=== PATIENT | female | born 1940 | race Caucasian/White ===

== ENCOUNTER 2022-04-06 11:15 | Outpatient (RCR) | payer MEDICARE, SELFPAY ==
--- NOTE | 2022-01-21 12:15 | OT.OPODN ---
OT Outpatient Ortho Daily Note OT Outpatient Ortho Daily Note Start: 01/07/22 12:39 Freq: Status: Active Protocol: Document 01/21/22 11:41 LCN (Rec: 01/21/22 12:14 LCN [id number]) E-Signed By Cristiane Rush OTR/L Type of Note Type of Note Type of Note Discharge Note Visit Number 11 Comments (visit #9 12/29/21, OT cert - ) Insurance Information Insurance Information Medicare B Outpatient History/Precautions Current Condition/Medical Diagnosis Treatment Diagnosis S/P R radius/ulna fracture, non operative approach Date of Onset 09/01/21 Precautions Lifting Restrictions Other Precautions RTC 11/12/21 R wrist pain, edema, numbness, ROM,and strength loss affecting daily living skills Medical/Functional History Medical History Reviewed Yes Ortho Subjective Subjective Subjective Pt tolerating increased resistance with R wrist HEP/ green band well, no increase of pain. Alternating between orange and green in her sessions 2x/day. Is able to load dishes overhead in cupboards, sweep and carry loads of laundry again. Gets some tenderness at TFCC area with 3 pt pinch. Still hard to turn doorknobs. (tender at end range of supination/TFCC) . Pt is having increased L shoulder pain (old shoulder injury from many years ago) that is gnawing at night, can not lie on her side, keeping her up at night. Pain is at biceps groove. H been doing some chest toe stapler and scapula exercises, well tolerated, but varied response to overhead and HABD tasks, so she would benefit from referral to PT to address this area more directly. Sariah Rueda is an active nearly 81 y/o female who fell backward and fractured radius, ulna of R wrist while wintering in [place] . Elected not to do surgical repair. Has a 3 casts since then and was changed to splint w Dr. Lowe on 10/13/21, who feels healing is going well. At this time she is affected functionally with stiffness, edema soreness , ROM/strength loss impacting her able to use R hand for most eating, grooming, dressing tasks. She can manipulate small objects with her fingers , applies light pressure of 2-3 # on R hand to open pill bottles, food packaging is going oaky. Not yet able to cut food, able to push self up with R hand form a chair yet. Splint makes it hard to eat with R hand/ silverware. OT OP Daily Ortho Note/Assessment Therapeutic Exercise Therapeutic Exercise Minutes (minutes) 25 Therapeutic Exercise Comments Reviewed HEP with supine shoulder towel ex for B UE w chest press, H ABD to Hadd and short arc sh FL 90-120 x 10 reps each 1-2 times per day, attempted SH ABD stretch , painful at bicipital groove . Issued HEP with visual aide and reviewed referral to PT to address her shoulder pain more directly. Added forearm resistance with supination pronation, better tolerated today, 16 oz weight hammer or water bottle. Guided to stay inside of any painful arc. Pt guided to cont with all strengthening and stretching HEP tasks at least 3 times per week. REviewed progress towards goals and all goals are met. Upper Extremity Function Upper Extremity Function Comments HOME PROGRAM-- 01/21/22-- supination pronation , 16 oz weight hammer or water bottle 01/09/22-- Green therapy band for WR EX, FL, RD, UD. Scap retraction and SH ER isometrics. 12/29/21-- PROM stretches of wrist to longer 30 sec holds x 3 then active end of ROM holds at WR EX and WR FL. SH wall slides/closed chain x 10 glides 12/23/21--UE traction 60 degree door knob traction stretch, posterior pasule/triceps stretch x 3 deep breaths, 3 reps 1-3 times per day. UPgraded to red putty. 12/16/21-- WR EX + EL EX ( medial epcondyle thick) stretch. Self Kinesiotaping at [facility] 12/09/21-- REsisted orange band WR EX, WR FL, RD, UD. 12/02/21-- Yellow putty flat fist, digit adduction gross extension. 11/19/21-- weightbearing onto talbe top alternating 50% pressure on both sides, 5 sec holds x 10 reps. 1-2x/d. 11/10/21-- Putty/yellow 2 pt pinch, digit extension. Self ROM of supination and ulnar deiviation end ROM ( at 70% pressure, hold x 30 sec x 2-3 reps, 3x/day. 11/05/21-- entle putty/yellow squeezing x 3 count holds and alternating 2 pt pinch for all digits. Added 12 oz soup can lifts and slow lowers for WR EX and WR FL. Did not tolerate hammer turns 10/20/21-- stretching WR EX WR FL, UD/ RD, Supination and pulling to 100% tension and reducing to 70% and holding for 3 deep breaths 50 sec x 2-3 reps, 2x/day. Gentle active hand/ tendon glides ( ana hook and table top), able to return from visual aide 3sets of 5 reps, hold 3 sec each. 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 Stove Mechanic and pull back is 35# R and 25# (d/t L shoulder pain). Jarrell pinch is 14# R and L 13#. 3 pt pinch is 9.5 # with 3/10 TFCC tenderness. WR EX is 72. WR EX is 50 AROM and 68 PROM. UD is [address] is 25. 12/30/19 Stove Mechanic to 20#, Jarrell pinch 13# and 3 pt to 9#. TFCC tender. WE AROM to 65 and PROM to 85, improves to 70degrees AROM at end of session. 12/23/21 WR EX AROM is 65, PROM is 75. Stove Mechanic is 18# R and 34# ( no pain). Jarrell pinch is 13# R and 14# L ( no pain). 3 pt pinch is 2/10 TFCC tender) R and 10# L. 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 ( no pain) Jarrell pinch is 113 R ( 13# w Ktape, decreased pn) . 3 pt is 7# ( less pain with tape in place). 12/09/21-- Stove Mechanic R 15# TFCC /201 tender, L 30#. Jarrell pinch is 12#R and 13# L. 3 pt is 7# R ( TFCC and up ECU , 3/10), 10#L. 12/02/21- Stove Mechanic 14# with or without wrist widget, 2-3/10 tenderness TFCC.. Same with weightbearing. AROM /PROM WR EX 60/75 WR FL 70/ 75 RD 25 /30 UD 35 of 40. 5/18/22-- Stove Mechanic with wrist widget on 13#, no pain. Without, has 12# 2-3/10 TFcC tenderness. 3 pt pinch is 5# w 2/10 pressure at TFCC w wrist widget on Painful w weightbearing 3/ 10 TFCC, even with wrist widget on. 11/10/21-- AROM/ PROM of R wrist . WE 60/70.. WF 68 / 73. RD 38 of 30. UD 24 / 38. Supination 80 / 90. OT Problems Problems Problems Decreased Strength,Decreased Range of Motion,Decreased Fine Motor,Lifting,Gripping, Pinching Other Problems Opening Containers,Fasteners Patient Potential Good Occupational Therapy Treatment Plan - OP Potential Rehabilitation Potential Good Goals Goals In 12 weeks, Sariah will demonstrate-- 1) Decreased pn to <2/10 80% of the time with sustained gripping, carrying groceries and deep cleaning/ cooking tasks. (Goal met ) 2) I HEP for stretching, gradual strengthening and self mgmt strategies.(Goal met ) 3) improved R retoucher strength to 35# and pinch to 10# R with pain < 2/10. (GOAL partially met, good symmetrical retoucher and pinch pattern for L and R sides established. Target Date 01/19/22 Treatment Plan Expected Frequency 1-2x Week Comment Summary Discharge from OT Occupational Therapy Billing Units Billing Units Therapeutic Exercise 2
--- NOTE | 2022-02-09 10:05 | PT.OPEX ---
PT [facility] Outpatient Eval PT [facility] Outpatient Eval Start: 02/05/22 17:32 Freq: Status: Active Protocol: Document 02/09/22 08:03 PADMINI (Rec: 02/09/22 09:03 PADMINI [id number]) E-signed By Kayla Ang DPT Physical Therapy Outpatient Evaluation Insurance Information Recert Due Date 05/04/22 Insurance Name Medicare B Medical Diagnosis left shoulder pain Treating Diagnosis infraspinatus tendonitis; rotator cuff and periscapular weakness Subjective Left shoulder pain. Nagging pain under shoulder blade for a few years. Chiropractic treatment helps. Had right wrist fracture. Had to overuse left shoulder which likely inflamed it. Pain in the whole left upper quadrant, neck, down the arm to the elbow, in the armpit, and under the shoulder blade. No numbness or tingling. Unable to sleep on left side. Pain rated 5/10 typically. Can increase to 8/ 10. PMH: osteoporosis; bilateral TKA; right rotator cuff repair PLOF: had similar pain but much more manageable level Assessment/Impression 81 yo with acute on chronic left upper quadrant pain. 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 Had to use left shoulder much more and pain increased to more severe levels. Signs and symptoms suggest infraspinatus tendonitis is the primary cause of pain with secondary rotator cuff tendon irritation and weakness and periscapular weakness. She will benefit from manual therapy to calm acute pain and exercise based interventions to build strength and tissue load for penitentiary resolution of pain limitations. Primary Functional Limitations reaching up, reaching back, hard to fall asleep, Plan of Care Physical Therapy Goals By 05/04/22 patient will... 1) Demonstrate full ROM in flexion and abduction without pain to reach overhead for household objects. 2) Sleep comfortably without shoulder pain waking 90% of the time. 3) Demonstrate 5/5 strength all directions without pain for return to functional lifting and carrying. 4) Report 75% decrease in daily pain levels for less disruption to functional activities. Treatment Plan/Direct Interventions Joint Mobilization,Manual Therapy,Therapeutic Exercises Frequency/Duration 1 x per week for 8 weeks then prn for 4 weeks Patient Will Be Discharged From Therapy Completion of LTG(s),Skills Plateau,Independent w/HEP, Independently Progressing Certification Information Initial Certification Date 02/09/22 Ending Certification Date 05/04/22 Provider signature indicates agreement with plan of care and medical necessity.
== END 2022-04-06 13:11 | disposition home or self-care (01) ==
PROVIDERS: Visit Provider Orthopaedic Surgery
DX: M25.531 Pain in right wrist (principal); Z51.89 Encounter for other specified aftercare
CPT/HCPCS: 97110; 97140; 97162; X5282

== ENCOUNTER 2023-09-27 13:00 | Outpatient (RCR) | payer MEDICARE, SELFPAY | END 2023-09-29 09:21 | disposition home or self-care (01) | PROVIDERS: PCP Internal Medicine; Visit Provider Internal Medicine | DX: M54.2 Cervicalgia (principal); Z51.89 Encounter for other specified aftercare | CPT/HCPCS: 97110; 97140; 97161 ==

== ENCOUNTER 2024-10-18 10:33 | Emergency (ER) | payer MEDICARE, BC, SELFPAY ==
--- OUTSIDE RECORDS SUMMARY | 2024-10-18 10:35 | XMS_ITS | Clinical Summary ---
Author Organization [facility] Address [address] [place] [address] Care Team Providers Care Health Sanitarian Name Role Phone Naga Cole M.D. Primary Care Catrachito valenzuela Source Comments Patient records contain information from all sites at [facility]. For routine questions regarding patient records, call [phone] during business hours, M-F 8:00 AM - 5:00 PM Central Time. Record requests for emergency care only can be directed to [phone] at any time.[facility] Allergies Active Allergy Reactions Criticality Noted Date Comments Lisinopril Cough 04/25/2018 Medications * This document contains information received from the source organization and may not represent a complete record from that organization. amoxicillin (AMOXIL) 500 mg capsule Take 4 capsules by mouth See Admin Instructions. 30-60 minutes before dental procedures 5 Active calcium carb/vit D3/minerals (CALCIUM-VITAMI N D ORAL) Take 1 tablet by mouth daily. 1 Active DME CPAP DME Order Active DULoxetine (Cymbalta) 40 mg capsule,delayed release(DR/EC) DR capsule Take 1 capsule (40 mg total) by mouth daily. 30 capsule 3 4 Active losartan-hydroC HLOROthiazide (Hyzaar) 100-12.5 mg per tablet TAKE 1 TABLET BY MOUTH DAILY 90 tablet 3 5 Active Active Problems Patient Care Coordination No te Formatting of this note migh t be different from the original. LEOBARDO signed for patients spouse Nam avila for lifetime unless revoked by patient. LEOBARDO completed 04/04/24 for daughter, Kati Madera. This is valid for life unless revoked. Problem Noted Date Diagnosed Date Spondylosis Cervical Without Myelopathy 04/26/20 Pain Myofascial 04/26/2024 Pain Neck Mechanical 08/17/2023 Overview (04/25/2024): She goes to pain clinic for cervical neck pain. Assessment & Plan (04/25/2024 3:38 PM CDT): Duloxetine can be increased. She will speak to the pain clinic provider tomorrow. She will mention a TENS unit Neuropathy Peripheral 12/22/2022 Overview (12/22/2022): Toes feel fat Bottom of feet numb. Assessment & Plan (04/25/2024 3:10 PM CDT): Improved with duloxetine Assessment & Plan (12/22/2022 6:24 PM CDT): Has lumbar degerative disc disease.Will restart on gabapentin 100 mg at hs.She will let me know in 2 weeks how she is tolerating the medication Lumbar Disc Disorder 12/22/2022 Overview (12/22/2022): Pain with muscle spasms Assessment & Plan (12/22/2022 9:37 AM CDT): Xray will be done Sclerosis Aortic Valve 12/02/2021 Overview (12/02/2021): Noted on echocardiogram 11/2021. Patient is asymptomatic. Assessment & Plan (04/25/2024 3:20 PM CDT): She gets more winded going up stairs. Repeat echo Osteoporosis 02/25/2021 Overview (04/20/2024): Reclast infusion January 2022, 2022, and 2023. Assessment & Plan (04/25/2024 3:36 PM CDT): She has completed her series of zoledronic acid. She will continue taking calcium with vit d. Assessment & Plan (12/22/2022 6:18 PM CDT): She is in need of another dose in January. Order will be placed. Body Mass Index 34.0 To 34.9 Adult 02/25/2021 Gastroesophageal Reflux Disease 07/05/2015 Overview (05/19/2022): Gastroesophageal reflux disease without esophagitis Assessment & Plan (04/25/2024 3:10 PM CDT): Well managed on prn protonix Assessment & Plan (05/19/2022 2:47 PM BUSINESS BANKING MANAGER): She is asking for her pantoprazole to be renewed. She takes at the approximate 3 times a week. She has had an EGD in the past. This medication was ordered at the time of the EGD and she finds it helpful in managing her symptoms. Hypertension Essential Primary 12/03/2009 Overview (04/25/2024): Essential hypertension with normal renal function. Managed with losartan-hctz Assessment & Plan (04/25/2024 3:34 PM CDT): Notmotensive on current medications Assessment & Plan (12/22/2022 6:26 PM CDT): Amlodipine 5 mg will be added. She will have Blood Pressure check in 2 weeks with nurse. Assessment & Plan (05/19/2022 2:50 PM BUSINESS BANKING MANAGER): She is normotensive and hemodynamically stable on her current plan of medication. No change. Normal kidney function and electrolytes. She is here today because she had an elevated systolic blood pressure at a recent visit with Sleep provider Obstructive Sleep Apnea Adult Overview (12/02/2021): Compliant with CPAP. Polysomnography completed in 2015. Has not been following with sleep medicine. Assessment & Plan (04/25/2024 3:06 PM CDT): Compliant with CPAP Assessment & Plan (12/22/2022 6:26 PM CDT): Wears her CPAP. Assessment & Plan (05/19/2022 2:48 PM BUSINESS BANKING MANAGER): Continue CPAP Osteoarthritis Restless Leg Syndrome Overview (05/19/2022): History of restless leg Assessment & Plan (04/25/2024 3:11 PM CDT): Improved with duloxetine Assessment & Plan (05/19/2022 2:49 PM BUSINESS BANKING MANAGER): She actually has no symptoms Resolved Problems Problem Noted Date Diagnosed Date Resolved Date Morbid Severe Obesity Due To Excess Calories 4 04/25/2024 History Of Falling 05/19/2022 2 Fracture T11-12 Wedge Compression Sequela 10/17/2021 05/19/2022 Overview (10/17/2021): Compression fracture noted on X-ray from 10/07. Fosamax started today. History Of Falling 10/07/2021 2 Hyperlipidemia 04/25/2024 Encounters Date Type Department Care Team Description 09/26/2024 Orders Only Division of Pain Medicine in [place], [place] [address] [place] [phone] Jane Tom, P.A.-C., M.S. 08/13/2024 Refill Department of Community Internal Medicine in [address] [phone] Sara Jacobs MPAS, P.A.-C. Med Refill from Last 3 Months Immunizations Immunization Administration Dates Next Due H1N1 Inj 06/19/2009 Influenza high dose QV(65 ye ars or older) (PF) 04/23/2023,05/01/2022,05/16/2021,2019 Influenza, Seasonal, Injectable 05/29/20 11,05/25/2008,04/19/2007,2005 Influenza, Unspecified 04/23/2017,2015,06/03/2015,2013,05/08/2013,05/13/2012,06/06/2010,0 03/15/2009,05/25/2008,04/19/2007, 006 PCV13 07/02/2015 PPSV23 06/14/2008 RZV (SHINGRIX) 05/23/2022,03/20/2021 SARS-COV-2 (COVID-19) - PFIZ ER (Discontinued)(12 years or older) 08/31/2020,08/10/2020 SARS-COV-2 (COVID-19) - PFIZ ER BIVALENT TS(Discontinued)(12 YEARS OR OLDER) 05/01/2022 SARS-COV-2 (COVID-19) - PFIZ ER Fall Seasonal (12 YEARS OR OLDER) 03/17/2024,04/23/2023 SARS-COV-2 (COVID-19) - PFIZ ER TS(Discontinued)(12 years or older) 10/17/2021 Td (Adult), adsorbed 09/09/2010 Tdap 07/02/2015 influenza trivalent LAIV (Na lina) (2 years through 49 years) 03/15/2009 influenza trivalent high dos e (HD)(PF) 03/17/2024,05/01/2019,04/25/2018,2016,06/03/2015 influenza vaccine quad (FLUZONE/FLUARIX) (6 months and older)(PF) 04/24/2016,06/19/2009 Family History Medical History Relation Name Comments Depression Brother 1 petros romano Diabetes Brother 1 petros romano Esophageal cancer Brother 1 petros romano Heart attack Brother 1 petros romano Prostate cancer Brother 1 petros romano Espogial can ser Sleep apnea Brother 1 petros romano Anxiety disorder Brother 2 roberta romano Coronary artery disease Brother 2 roberta romano Depression Brother 2 roberta romano Diabetes Brother 2 roberta romano Sleep apnea Brother 2 roberta romano Depression Brother 3 fernando Lewy body dementia Brother 4 alejo Parkinson disease Brother 4 alejo Osteoarthritis of knee Daughter Sumanth Coronary artery disease Father Juan romano Depression Father Juan romano JENN disease Father Juan romano Glaucoma Father Juan romano Heart attack Father Juan romano Hypertension Father Juan romano Sleep apnea Father Juan romano Stroke Father Juan romano Ulcerative colitis Father Juan romano No Known Problems Half-Sister Kasandra Jacobsen Cataracts Mother Zahra rose mary Coronary artery disease Mother Zahra rose mary Diabetes Mother Calais rose mary Diabetic retinopathy Mother Calais rose mary Eczema Mother Zahra rose mary Glaucoma Mother Zahra rose mary Hearing loss Mother Calais rose mary Heart attack Mother Calais rose mary Hypertension Mother Calais rose mary Ovarian cancer Mother Zahra rose mary Sleep apnea Sister 1 kathi Arthritis Sister 2 kishan Coronary artery disease Sister 2 kishan Hypertension Sister 2 kishan Anxiety disorder Sister 3 larry Arthritis Sister 3 larry Depression Sister 3 larry Sleep apnea Sister 3 larry Heart disease Son 1 Anatoliy Hypertension Son 1 Anatoliy Anxiety disorder Son 2 Oren Hypertension Son 2 Oren Hypertension Son 3 Andre Relation Name Status Comments Brother 1 petros romano (Age 68) Brother 2 roberta romano Alive Brother 3 fernando (Age 42) MVA Brother 4 alejo Alive Daughter Sumanth Alive Father Juan ormano (Age 71) Half-Sister Kasandra Jacobsen Alive Mother Calais rose mary (Age 84) Sister 1 kathi Alive Sister 2 kishan Alive Sister 3 larry Alive Son 1 Anatoliy Alive Son 2 Oren Alive Son 3 Andre Alive Social History Tobacco Use Types Packs/Day Years Used Date Smoking Tobacco: Former Cigarettes Q uit: 11/06/1976 Smokeless Tobacco: Never Tobacco Cessation:Counseling Given: Not Answered Alcohol Use Standard Drinks/Week Comments Yes 1 (1 standard drink = 0.6 oz pur e alcohol) Maybe 1 a month [facility] Utilities Answer Date Recorded In the past 12 months has th e electric, gas, oil, or water company threatened to shut off services in your home? No 04/04/2024 Humiliation, Afraid, Rape, and Kick questionnair e Answer Date Recorded Within the last year, have y ou been afraid of your partner or ex-partner? No 05/19/2022 Within the last year, have y ou been humiliated or emotionally abused in other ways by your partner or ex-partner? No Within the last year, have y ou been kicked, hit, slapped, or otherwise physically hurt by your partner or ex-partner? No 05/19/2022 Within the last year, have y ou been raped or forced to have any kind of sexual activity by your partner or ex-partner? No 05/19/2022 Social Connection and Isolat ion Panel [NHANES] Answer Date Recorded In a typical week, how many times do you talk on the phone with family, friends, or neighbors? Twice a week 05/19/2022 How often do you get togethe r with friends or relatives? Once a week 05/19/2022 How often do you attend chur ch or episcopalian services? More than 4 times per year 05/19/2022 Do you belong to any clubs o r organizations such as latter day groups, unions, fraternal or athletic groups, or school groups? Yes 05/19/2022 How often do you attend meet ings of the clubs or organizations you belong to? 1 to 4 times per year 05/19/2022 Are you , , di vorced, , never , or living with a partner? 05/19/2022 AUDIT-C Answer Date Recorded Q1: How often do you have a drink containing alc ohol? Monthly or less 05/19/2022 Q2: How many drinks containi ng alcohol do you have on a typical day when you are drinking? 1 or 2 05/19/2022 Q3: How often do you have si x or more drinks on one occasion? Never 05/19/2022 Overall Financial Resource Strain (CARDIA) Answe r Date Recorded How hard is it for you to pa y for the very basics like food, housing, medical care, and heating? Not hard at all 06/16/2023 PHQ-2 Answer Date Recorded PHQ-2 Score 0 04/04/2024 [facility] - Occupational Stress Questionnaire Answer Date Recorded Do you feel stress - tense, restless, nervous, or anxious, or unable to sleep at night because your mind is troubled all the time - these days? Only a little 05/19/2022 Exercise Vital Sign Answer Date Recorde d On average, how many days pe r week do you engage in moderate to strenuous exercise (like a brisk walk)? 3 days 06/16/2023 On average, how many minutes do you engage in exercise at this level? 40 min 06/16/2023 Hunger Vital Sign Answer Date Recorded Within the past 12 months, y ou worried that your food would run out before you got the money to buy more. Never true 04/04/20 24 Within the past 12 months, t he food you bought just didn't last and you didn't have money to get more. Never true 04/04/2024 PRAPARE - Transportation Answer Date Re corded In the past 12 months, has l ack of transportation kept you from medical appointments or from getting medications? No 07/2023 In the past 12 months, has l ack of transportation kept you from meetings, work, or from getting things needed for daily living? No 04/04/2024 Nutrition Answer Date Recorded On average, how many serving s of fruits and vegetables do you eat per day (serving size is equal to 1 cup or approximately the size of a tennis ball)? 3-5 06/16/2023 Dental Answer Date Recorded Dental: Regular Dentist Yes 05/19/20 Employment Answer Date Recorded Employment status Retired 06/16/2023 Housing Stability Answer Date Recorded What is your living situation today? I have a [facility] place to live 04/04/2024 Education Answer Date Recorded What is the highest level of school you have completed or the highest degree you have received? 12th grade 12/20/2018 Comments No Sex and Gender Information Value Date Recorded Sex Assigned at Female 04/24/2018 2:32 PM CDT Legal Sex Female 2:08 AM BUSINESS BANKING MANAGER Gender Identity Female 04/24/2018 2:32 PM CDT Sexual Orientation Straight 04/24/2018 2: 32 PM CDT Last Filed Vital Signs Vital Sign Reading Time Taken Comments Blood Pressure 123/78 04/25/2024 2:42 PM CDT Pulse 68 04/25/2024 2:42 PM CDT manua l Temperature 36 C (96.8 F) 04/25/2024 2:42 PM CDT Respiratory Rate 14 04/04/2024 1:37 PM CDT Oxygen Saturation 96% 11/15/2023 2:45 PM CDT Inhaled Oxygen Concentration - - Weight 88 kg (194 lb 0.1 oz) 04/25/2024 2:42 PM CDT Height 154 cm (5' 0.63) 04/25/2024 2:42 PM CDT Body Mass Index 37.11 04/25/2024 2:42 PM CDT Plan of Treatment Upcoming Encounters Date Type Department Care Team (Latest Contact Info) Description 10/25/2024 1:00 PM CDT Clinical Communication Virtual Review in [place], [place] [address] [place] [phone] 10/27/2024 10:00 AM CDT Office Visit Division of Pain Medicine in [place], [place] [address] [place] [phone] Jane Tom P.A.-C., M.S. [address] [place] [phone] Health Maintenance Due Date Last Done Comments Depression Screening (Annual PHQ-2) 07/05/2024 Fall Risk Screen (Annual) 07/05/2024 COVID-19 Vaccine ( season) 2024 03/17/2024, 04/23/2023, 05/01/2022, Additional history exists Visit: Medicare Annual Wellness 04/05/2025 04/04/2024 Creatinine Level (Kidney Function Test) 04/25/2025 04/25/2024, 01/24/2024, 08/17/2023, Additional history exists Office Visit for Blood Pressure Check / Re-check 04/25/2025 04/25/2024 Potassium Level 04/25/2025 04/25/2024, 08/05, 12/22/2022, Additional history exists Sodium Level 04/25/2025 04/25/2024, 08/05, 12/22/2022, Additional history exists Visit: Chronic Disease, age 18+ 04/25/2025 04/25/2024 DTaP,Tdap,and Td Vaccines (2 - Td or Tdap) 07/02/2025 07/02/2015, 09/09/2010 Pneumococcal vaccine (50+ years) Completed 07/02/2015, 06/14/2008 Colonoscopy Discontinued 04/18/2021, 05/17/2014 Colorectal Cancer Surveillance Discontinued Zoster Vaccines Completed 05/23/2022, 03/20/2021 Influenza Vaccine Completed 03/17/2024, , 05/01/2022, Additional history exists RSV vaccine - (32-36 weeks) or 60+ years Completed 05/02/2024 CT Colonography Discontinued Cologuard Discontinued IPV Vaccines Aged Out No longer eligi ble based on patient's age to complete this topic Medical Devices Implanted Type Area Conductor Road Freight Device Identifier Shelf Expiration Date Model / Serial / Lot Hardware E.G. Pins/Screws/R ods Hardware e.g. 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 Knee Implant Knee Implant Right: Knee Knee Implant Knee Implant Left: Knee Ocular Lens Ocular Lens Bilateral: Eye Procedures Procedure Name Priority Date/Time Associated Diagnosis Comments COMPREHENSIVE METABOLIC PANEL, S/P Routine 04/25/2024 3:46 PM CDT Hypertension Essential Primary from Last 3 Months or Most Recently Relevant to Health Maintenance Results * (ABNORMAL) Comprehensive Metabolic Panel (04/25/2024 3:46 PM CDT) Potassium, P 4.9 3.6 - 5.2 mmol/L 04/25/2024 6:24 PM CDT OWAT Sodium, P 140 135 - 145 mmol/L 04/25/2024 6:24 PM CDT OWAT Chloride, P 103 98 - 107 mmol/L 04/25/2024 6:24 PM CDT OWAT Bicarbonate, P 28 22 - 29 mmol/L 04/25/2024 6:24 PM CDT OWAT Anion Gap, P 9 7 - 15 04/25/2024 6:24 PM CDT OWAT BUN (Blood Urea Nitrogen), P 22(H) 6 - 21 mg/dL 04/25/2024 6:24 PM CDT OWAT Creatinine 0.75 0.59 - 1.04 mg/dL 04/25/2024 6:24 PM CDT OWAT Estimated GFR (eGFR) 79 >=60 mL/min/BS A 04/25/2024 6:24 PM CDT OWAT Comment: Estimated GFR calculated using the 2020 CKD_EPI creatinine equation. Calcium, Total, P 9.5 8.8 - 10.2 mg/dL 04/25/2024 6:24 PM CDT OWAT Glucose, P 105 70 - 140 mg/dL 04/25/2024 6:24 PM CDT OWAT Protein, Total, P 7.2 6.3 - 7.9 g/dL 04/25/2024 6:24 PM CDT OWAT Albumin, P 4.2 3.5 - 5.0 g/dL 04/25/2024 6:24 PM CDT OWAT Aspartate Aminotransferase (AST), P 31 8 - 43 U/L 04/25/2024 6:24 PM CDT OWAT Alkaline Phosphatase, P 82 35 - 104 U/L 04/25/2024 6:24 PM CDT OWAT Alanine Aminotransferase (ALT), P 19 7 - 45 U/L 04/25/2024 6:24 PM CDT OWAT Bilirubin, Total, P 0.3 0.0 - 1.2 mg/dL 04/25/2024 6:24 PM CDT OWAT Blood (Blood, Venous) 04/25/2024 3:46 PM CDT 04/25/2024 5:51 PM CDT Rosmery Pinto APRN, C.N.P. 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 See document viewer. Advance Directives 01/22/2012 12:00 AM Leg acy document. See document viewer. Care Teams Health Sanitarian Relationship Specialty Start Date End Date Naga Cole M.B.B.SBrittney, MAntonia. [address] [place] [phone] PCP - General 09/04/24 [facility] [place], [place] Dentistry 04/04/24 [facility] [place], [place] Ophthalmology 04/04/24 [facility] [place], [place] Chiropractic Medicine 04/04/24 [facility] Durable Medical Equipment 04/04/24
--- OUTSIDE RECORDS SUMMARY | 2024-10-18 10:36 | XMS_ITS | Encounter Summary ---
Author Organization [facility] Address [address] [place] [address] Care Team Providers Care Planishing Press Operator Name Role Phone Naga Cole M.D. Primary Care nicolas Reason for Referral * Outpatient (Routine) - Authorized Specialty Diagnoses / Procedures Referred By Contsaqib t Referred To Contact Pain Medicine Jane Tom P.A.-C., M.S. [address] [place] [phone] Phone: tel: fax: [facility] Referral ID Status Reason Start Date Expiration Date V isits Requested Visits Authorized [id number] Authorized 09/26/2024 03/28/2026 1 1 Encounter Details Date Type Department Care Team (Late st Contact Info) Description 09/26/2024 Orders Only Division of Pain Medicine in [place], [place] [address] [place] [phone] Jane Tom P.A.-C., M.S. [address] [place] [phone] Social History Tobacco Use Types Packs/Day Years Used Date Smoking Tobacco: Former Cigarettes Q uit: 11/06/1976 Smokeless Tobacco: Never Alcohol Use Standard Drinks/Week Comments Yes 1 (1 standard drink = 0.6 oz pur e alcohol) Maybe 1 a month [facility] Utilities Answer Date Recorded In the past [...] 05/19/2022 How often do you attend chur or yazdanism services? More than 4 times per year 05/19/2022 Do you belong to any clubs o r organizations such as advent groups, unions, fraternal or athletic groups, or [...] Answer Date Recorded PHQ-2 Score 0 04/04/2024 [facility] of Occupat ional [facility] - Occupational Stress Questionnaire Answer Date Recorded [...] your living situation today? [facility] place to live 04/04/2024 Education Answer Date Recorded What is the highest level of school you have completed or the highest degree you have received? 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 [address] [place] [phone] Scheduled Referrals Name Type Priority Associated Diagnoses Orde r Schedule Pain Medicine office visit (clinic) Outpatient Referral Routine Expected: 09/26/2024, Expires: 12/27/2025 documented as of this encounter Visit Diagnoses Not on filedocumented in this encounter Additional Health Concerns Assessment Noted Time PHQ-9 Depression Total Score: 2 05/01/20 19 10:21 AM CDT documented as of this encounter Care Teams Planishing Press Operator Relationship Specialty Start Date End Date Naga Cole M.B.B.S., MAntonia. [address] [place] [phone] PCP - General 09/04/24 [facility] [place], [place] Dentistry 04/04/24 [facility] [place], [place] Ophthalmology 04/04/24 [facility] [place], [place] Chiropractic Medicine 04/04/24 [facility] Durable Medical Equipment 04/04/24 documented as of this encounter
--- OUTSIDE RECORDS SUMMARY | 2024-10-18 10:36 | XMS_ITS | Clinical Summary ---
Author Organization [facility] Address [address] [place] [address] Care Team Providers Care Trench Digger Name Role Phone Clinic, [facility] Primary Care Prov ider Allergies Active Allergy Reactions Criticality Noted Date Comments Lisinopril Cough 05/03/2021 Medications pantoprazole (PROTONIX) 20 MG EC tablet Take 40 mg by mouth daily as needed for heartburn Active amoxicillin (AMOXIL) 500 MG capsule Take 2,000 mg by mouth daily as needed (30-60 MIN BEFORE PROCEDURE) Preventative because artificial Knees Active CALCIUM-VITAMIN D PO Active losartan-hydroc hlorothiazide (HYZAAR) 50-12.5 MG tablet Take 1 tablet by mouth daily Active erythromycin (ROMYCIN) 5 MG/GM ophthalmic ointmentIndicat ions:Dermatocha lasis of both upper eyelids Apply topically 3 times daily 7 g 1 Active Social History Tobacco Use Types Packs/Day Years Used Date Smoking Tobacco: Never Smokeless Tobacco: Never Adolescent Education Answer Date Record ed Getting School Help Needed Not on file 03/27 Comments No Sex and Gender Information Value Date Recorded Sex Assigned at Not on file Legal Sex Female 2:49 PM CDT Gender Identity Not on file Sexual Orientation Not on file Last Filed Vital Signs Vital Sign Reading Time Taken Comments Blood Pressure 159/81 05/06/2021 11:30 AM CDT Pulse 66 05/06/2021 11:30 AM CDT Temperature 36.1 C (97 F) 05/06/2021 11:30 AM CDT Respiratory Rate 14 05/06/2021 11:30 AM CDT Oxygen Saturation 94% 05/06/2021 11:30 AM CDT Inhaled Oxygen Concentration - - Weight 88 kg (193 lb 14.4 oz) 05/06/2021 7:03 AM CDT Height 154.9 cm (5' 1) 05/06/2021 7:03 AM CDT Body Mass Index 36.64 05/06/2021 7:03 AM CDT Plan of Treatment Not on file Insurance [employer] AD[employer] Care Teams Trench Digger Relationship Specialty Start Date End Date [facility], [address] [address] PCP - General 05/15/21
[2024-10-18 10:43] VITALS: BP 173/90; PULSE 61; RESP 18; TEMP 36.9; O2SAT 96; BMI 35.9
--- NOTE | 2024-10-18 11:01 | ED_ITS ---
HPI - Extremity Injury (Lower) General Time Seen by Provider: 11:01 Date Seen: 10/18/24 Chief Complaint: Extremity Pain/Injury, Lower Stated Complaint: leg pain Time Seen by Provider: 10/18/24 10:42 Source: patient and RN notes reviewed Mode of arrival: ambulatory Limitations: no limitations History of Present Illness HPI Narrative: This 83-year-old female is coming into the ER with concern of possible blood clot in her leg. She is notice some burning type pain in the back of her leg, inside of her leg. She has no history of blood clots before. Her symptoms s tarted when she was doing water aerobics on Wednesday, she stretched out and stretch the back of her leg, felt a little twinge or a pull. She used a some per on her leg, did a lot of deep tissue massage. She is getting pain from the buttock area down the back of the leg to the knee. No fevers chills, no other trauma. She went to chiropractor yesterday, she feels the pain is worsening. She woke up at 2:00 a.m. with the pain. She is noticing no swelling in the leg, no numbness or tingling. She has had a knee replacement on this side, her knee is not primarily bothering her. Related Data Previous Rx's ?Medication ?Instructions ?Recorded hydrocodone 5 mg-acetaminophen 325 1 tab PO Q6H PRN pain #10 tabs 10/18/24 mg tablet prednisone 20 mg tablet 20 mg PO BID #10 tabs 10/18/24 tizanidine 4 mg tablet 4 mg PO Q8H PRN muscle spasticity 10/18/24 #12 tabs Allergies Allergy/AdvReac Type Severity Reaction Status Date / Time No Known Drug Allergies Allergy Verified 10/18/24 10:42 Review of Systems Narrative: As per HPI. PFSH PFSH Social History Smoking Status: Former smoker Do you use any of these nicotine containing products: None Second hand tobacco smoke exposure: No How often do you have a drink containing alcohol: monthly or less How many standard drinks containing alcohol do you have on a typical day: 1 or 2 How often do you have six or more drinks on one occasion: Never AUDIT-C Alcohol total score: 1 Non-prescribed substance use: denies use service: No Exam Const: Vital Signs, click to edit/add: Vital Signs - 24 hr 10/18/24 10:43 Temperature 98.4 F Pulse Rate [Pulse Oximeter] 61 Respiratory Rate 18 Blood Pressure [Ri ght Upper Arm] 173/90 H Pulse Oximetry 96 Oxygen Delivery Me thod Room Air Patient is alert, interactive, no apparent distress. She is lying on the bed in exam room 2. She is able to speak in complete sentences, symmetric facial function. Lungs are clear, good air entry, no wheezing or crackles. CV regular rate and rhythm, no murmur. She has no groin tenderness. I can rotate her hip, no pain with range of motion of the hip when it is isolated. She can straight leg raise this extremity off the bed, strength is 5/5 and symmetric on resisted strength testing. Well-healed scar over the knee, no joint effusion noted, full flexion extension. There is no palpable cord in the thigh. On palpation of the buttock, does seem to have some sciatic notch tenderness. She has normal light touch sensation. I do not see any concern for motor or sensory loss here. Documenting provider has reviewed patient's vital signs: yes Course Course ED Course: I did review with patient that based on this history I am much less concerned about a blood clot then a.m. about musculoskeletal issues. It could be hip arthritis, more likely seems like it could be potentially coming from her back or a sciatica type issue. We discussed pinched nerves in the lumbar spine. Could be simply muscular with pulling of tendon or muscle with the stretching. We discussed doing venous ultrasound of this extremity, looking at hip x-ray and lumbar spine x-ray. She is in agreement with this plan. Reevaluation(s) Time of Reevaluation #1: 12:57 Reevaluation #1: Have reviewed imaging reports with patient. She does have some hip arthritis but she is starting to get some low back pain now, pain is going down the back of the leg, think that this is a lumbar radiculopathy. She does think so as well. She did take some of her own Tylenol here. She is getting more uncomfortable, do think she might need some initial pain management, will send in a prescription for some hydrocodone as she has tolerated this before. We discussed use of prednisone, will send in muscle relaxant with tizanidine. Dis cussed the need for relative rest, no static positions, sitting sometimes puts the most stress on the back, lying and then getting up to do some slow walks might be most beneficial. She is going to need to follow up, do recommend physical therapy referral through her clinic. Vital Signs Vital signs: Initial Vital Signs Temperature 98.4 F 10/18/24 10:43 Temperature Source Temporal Artery Scan 10/18/24 10:43 Pulse Rate 61 10/18/24 10:43 Pulse Rhythm Regular 10/18/24 10:43 Respiratory Rate 18 10/18/24 10:43 Blood Pressure 173/90 H 10/18/24 10:43 Blood Pressure Mean 117 H 10/18/24 10:43 Blood Pressure Position Supine 10/18/24 10:43 Pulse Oximetry 96 10/18/24 10:43 Oxygen Delivery Method Room Air 10/18/24 10:43 Vital Signs Temperature 98.4 F 10/18/24 10:43 Pulse Rate 61 10/18/24 10:43 Respiratory Rate 18 10/18/24 10:43 Blood Pressure 173/90 H 10/18/24 10:43 Pulse Oximetry 96 10/18/24 10:43 Oxygen Delivery Method Room Air 10/18/24 10:43 Temperature 98.4 F 10/18/24 10:43 Pulse Rate 61 10/18/24 10:43 Respiratory Rate 18 10/18/24 10:43 Blood Pressure 173/90 H 10/18/24 10:43 Pulse Oximetry 96 10/18/24 10:43 Oxygen Delivery Method Room Air 10/18/24 10:43 MDM - Extremity Injury (Lower) Imaging Data Venous US: Attestation: I have reviewed the pertinent imaging results. 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 Site :?[id number] Study:?US-Extremity Right venous-10/18/2024 11:39:43 AM Ordering Physician:Valentín Phan Final Report: INDICATION: Right thigh pain. TECHNIQUE: Ultrasound venous duplex lower right extremity. Compression venous exam was performed using self-scale, color Doppler, and spectral Doppler analysis. COMPARISON: None. FINDINGS: Deep veins: Sonographic imaging demonstrates the right common femoral, deep femoral, superficial femoral, popliteal, posterior tibial and the contralateral left common femoral veins to be fully compressible with normal color Doppler blood flow. Superficial veins: Greater saphenous vein is fully compressible. IMPRESSION: No evidence of deep venous thrombosis. Dictated by Greg Cui MD @ 10/18/2024 11:57:31 AM (Electronic Signature) XR lumbar spine: Attestation: I have reviewed the pertinent imaging results. 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 Site :?[id number] Study:?XRay-Spine Lumbar 2 VIEW-10/18/2024 12:04:14 PM Ordering Physician:Valentín Phan Final Report: INDICATION: Pain right hip/thigh. TECHNIQUE: Lumbar spine 2 view. COMPARISON: None. FINDINGS/IMPRESSION: Mild anterior wedging compression of L1 with height loss of about 30 percent, unknown chronicity. Grade 2 anterolisthesis of L5 over S1, likely secondary to degenerative facet arthropathy. Multilevel moderate degenerative changes with reduction of intervertebral disc height at T12-L1, L1-2, L5-S1 level with scattered facet arthropathy. Dictated by Greg Cui MD @ 10/18/2024 12:29:45 PM (Electronic Signature) XR right hip/pelvis: Attestation: I have reviewed the pertinent imaging results. 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 Site :?[id number] Study:?XRay-Hip Right 2 VIEW-10/18/2024 12:03:48 PM Ordering Physician:Valentín Phan Final Report: Indication: Hip pain. Technique: Pelvis and right hip 3 view. Comparison: None. Findings: Moderate degenerative arthrosis of bilateral hips. No acute fracture or dislocation. No localized soft tissue swelling about right hip. Impression: Moderate degenerative arthrosis of right hip without acute osseous abnormality. Dictated by Greg Cui MD @ 10/18/2024 12:27:18 PM (Electronic Signature) Discharge Plan Discharge Clinical Impression: Acute right lumbar radiculopathy Patient Disposition: Home, Self-Care Condition: Stable Instructions: Lumbar Radiculopathy (ED) Additional Instructions: Start prednisone and take as prescribed, use with food. Can use other prescription medicines as written for. Do recommend follow up in clinic, try to get into your clinic within the next week, they can put in a physical therapy referral which you may greatly benefit from. If there are warning signs as reviewed in the handout, please seek re-evaluation. You certainly can continue with your chiropractor if you would like to. Activity Level: Activity as Tolerated Prescriptions: New prednisone 20 mg tablet 20 mg PO BID Qty: 10 0RF tizanidine 4 mg tablet 4 mg PO Q8H PRN (Reason: muscle spasticity) Qty: 12 0RF hydrocodone-acetaminophen 5-325 mg tablet 1 tab PO Q6H PRN (Reason: pain) Qty: 10 0RF Follow Up/Referrals: aSra Jacobs PA-C [Primary Care Provider] - Stand Alone Forms: MyHealth Info Instructions
--- NOTE | 2024-10-18 11:07 | CRLHL7_ITS ---
For Patients: As a result of the Century Cures Act, medical imaging exams and procedure reports are released immediately into your electronic medical record. You may view this report before your referring provider. If you have questions, please contact your health care provider. INDICATION: Right thigh pain. TECHNIQUE: Ultrasound venous duplex lower right extremity. Compression venous exam was performed using self-scale, color Doppler, and spectral Doppler analysis. COMPARISON: None. FINDINGS: Deep veins: Sonographic imaging demonstrates the right common femoral, deep femoral, superficial femoral, popliteal, posterior tibial and the contralateral left common femoral veins to be fully compressible with normal color Doppler blood flow. Superficial veins: Greater saphenous vein is fully compressible. IMPRESSION: No evidence of deep venous thrombosis. Dictated by Greg Cui MD @ 10/18/2024 11:57:31 AM (Electronically Signed)
--- NOTE | 2024-10-18 11:07 | CRLHL7_ITS ---
For Patients: As a result of the Century Cures Act, medical imaging exams and procedure reports are released immediately into your electronic medical record. You may view this report before your referring provider. If you have questions, please contact your health care provider. INDICATION: Pain right hip/thigh. TECHNIQUE: Lumbar spine 2 view. COMPARISON: None. FINDINGS/IMPRESSION: Mild anterior wedging compression of L1 with height loss of about 30 percent, unknown chronicity. Grade 2 anterolisthesis of L5 over S1, likely secondary to degenerative facet arthropathy. Multilevel moderate degenerative changes with reduction of intervertebral disc height at T12-L1, L1-2, L5-S1 level with scattered facet arthropathy. Dictated by Greg Cui MD @ 10/18/2024 12:29:45 PM (Electronically Signed)
--- NOTE | 2024-10-18 11:07 | CRLHL7_ITS ---
For Patients: As a result of the Century Cures Act, medical imaging exams and procedure reports are released immediately into your electronic medical record. You may view this report before your referring provider. If you have questions, please contact your health care provider. Indication: Hip pain. Technique: Pelvis and right hip 3 view. Comparison: None. Findings: Moderate degenerative arthrosis of bilateral hips. No acute fracture or dislocation. No localized soft tissue swelling about right hip. Impression: Moderate degenerative arthrosis of right hip without acute osseous abnormality. Dictated by Greg Cui MD @ 10/18/2024 12:27:18 PM (Electronically Signed)
--- OUTSIDE RECORDS SUMMARY | 2024-10-18 11:26 | XMS_ITS | Clinical Summary ---
Author Organization [employer] [facility] Address [facility] [place] [address] Care Team Providers Care Pipeline Welder Name Role Phone Eli Tinsley MD Unavailable Rosmery Pinto NP Primary Care Provider Allergies No known active allergies Medications CALCIUM CARBONATE/VITAM IN D3 (CALCIUM + D ORAL) Take 600 mg by mouth once daily. Active losartan-hydroc hlorothiazide, 50-12.5 mg, (HYZAAR) 50-12.5 mg tablet Take 1 tablet by mouth once daily. Active amoxicillin (AMOXIL) 500 mg capsule Take 500 mg by mouth. 4 capsules by mouth 30-60 minutes before procedure Active gabapentin (NEURONTIN) 100 mg capsule Take 100 mg by mouth once every other day. 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 Gender Identity Not on file Sexual Orientation Not on file Obstetrics History Last Filed Vital Signs Vital Sign Reading Time Taken Comments Blood Pressure 165/62 04/18/2021 11:45 AM CDT Pulse 66 04/18/2021 11:45 AM CDT Temperature 36.8 C (98.2 F) 04/18/2021 10:25 AM CDT Respiratory Rate 18 04/18/2021 11:45 AM CDT Oxygen Saturation 98% 04/18/2021 11:45 AM CDT Inhaled Oxygen Concentration - - Weight 86.2 kg (190 lb) 04/18/2021 10:25 AM CDT Height 155 cm (5' 1.02) 04/08/2021 11:42 AM CDT Body Mass Index 35.87 04/08/2021 11:42 AM CDT Plan of Treatment Not on file Insurance [employer] CHOICE PPO MR MEDICARE PART B HB ONLY MR BC [place] Advance Directives * Full Code (Latest Code Status on File) Date Activated Date Inactivated Comments 04/18/2021 10:03 AM 04/18/2021 3:19 PM Question Answer Comments Code Status Discussion: Not Discussed * Full Code Date Activated Date Inactivated Comments 05/17/2014 8:21 AM 05/17/2014 1:29 PM * Full Code Date Activated Date Inactivated Comments 04/16/2014 10:22 AM 04/16/2014 3:02 PM Care Teams Pipeline Welder Relationship Specialty Start Date End Date Rosmery Pinto NP PCP - General Nurse Practitioner 04/14/21 Eli Tinsley MD Family Practice 04/16/14
--- OUTSIDE RECORDS SUMMARY | 2024-10-18 11:26 | XMS_ITS | Encounter Summary ---
Author Organization [facility] Address [address] [place] [id number] Care Team Providers Care Agribusiness Internship Name Role Phone Naga Cole M.D. Primary Care nicolas Reason for Referral * Outpatient (Routine) - Authorized Specialty Diagnoses / Procedures Referred By Contsaqib t Referred To Contact Pain Medicine Jane Tom P.A.-C., M.S. [address] [place] [phone] Phone: tel: fax: [facility] Referral ID Status Reason Start Date Expiration Date V isits Requested Visits Authorized [id number] Authorized 09/26/2024 03/28/2026 1 1 Encounter Details Date Type Department Care Team (Late st Contact Info) Description 09/26/2024 Orders Only Division of Pain Medicine in [place], [place] [address] [place] [phone] Jane Tom P.A.-C., M.S. [address] [place] [phone] Social History Tobacco Use Types Packs/Day Years Used Date Smoking Tobacco: Former Cigarettes Q uit: 11/06/1976 Smokeless Tobacco: Never Alcohol Use Standard Drinks/Week Comments Yes 1 (1 standard drink = 0.6 oz pur e alcohol) Maybe 1 a month [facility] Utilities Answer Date Recorded In the [...] How often do you attend chur or yazidi services? More than 4 times per year 05/19/2022 Do you belong to any clubs o r organizations such as religion groups, unions, fraternal or athletic groups, or [...] Answer Date Recorded PHQ-2 Score 0 04/04/2024 [facility] [place] of Occupat ional [facility] - Occupational Stress Questionnaire Answer [...] your living situation today? I have a [facility] place to live 04/04/2024 Education Answer Date Recorded What is the highest level of school you have completed or the highest degree you have received? 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 [address] [place] [phone] Scheduled Referrals Name Type Priority Associated Diagnoses Orde r Schedule Pain Medicine office visit (clinic) Outpatient Referral Routine Expected: 09/26/2024, Expires: 12/27/2025 documented as of this encounter Visit Diagnoses Not on filedocumented in this encounter Additional Health Concerns Assessment Noted Time PHQ-9 Depression Total Score: 2 05/01/20 19 10:21 AM CDT documented as of this encounter Care Teams Agribusiness Internship Relationship Specialty Start Date End Date Naga Cole M.B.B.S., MAntonai. [address] [place] [phone] PCP - General 09/04/24 [facility] [place], [place] Dentistry 04/04/24 [facility] [place], [place] Ophthalmology 04/04/24 [facility] [place], [place] Chiropractic Medicine 04/04/24 [facility] D[facility] Medical Equipment 04/04/24 documented as of this encounter
--- OUTSIDE RECORDS SUMMARY | 2024-10-18 11:26 | XMS_ITS | Clinical Summary ---
Author Organization [facility] Address [address] [place] [address] Care Team Providers Care Shorer Name Role Phone Clinic, [facility] Primary Care Prov ider Allergies Active Allergy [...] HUMAN EMPLOYER PLAN MED ADV Care Teams Shorer Relationship Specialty Start Date End Date [facility], [address] [phone] PCP - General 05/15/21
--- OUTSIDE RECORDS SUMMARY | 2024-10-18 11:26 | XMS_ITS | Clinical Summary ---
Author Organization [facility] Address [address] [place] [phone] Care Team Providers Care Meters Superintendent Name Role Phone Naga Cole M.D. Primary Care Catrachito valenzulea Source Comments Patient records contain information from all sites at [facility]. For routine questions regarding patient records, call [phone] during business hours, M-F 8:00 AM - 5:00 PM Central Time. Record requests for emergency care only can be directed to [phone] at any time.[facility] Allergies Active Allergy Reactions Criticality Noted Date [...] protonix Assessment & Plan (05/19/2022 2:47 PM THERMOMETER MAKER): She is asking for her pantoprazole to [...] nurse. Assessment & Plan (05/19/2022 2:50 PM THERMOMETER MAKER): She is normotensive and hemodynamically stable on [...] CPAP. Assessment & Plan (05/19/2022 2:48 PM THERMOMETER MAKER): Continue CPAP Osteoarthritis Restless Leg Syndrome Overview (05/19/2022): History of restless leg Assessment & Plan (04/25/2024 3:11 PM CDT): Improved with duloxetine Assessment & Plan (05/19/2022 2:49 PM THERMOMETER MAKER): She actually has no symptoms Resolved Problems [...] Orders Only Division of Pain Medicine in [place], [place] [address] [place] [phone] Jane Tom, P.A.-C., M.S. 08/13/2024 Refill Department of Community Internal Medicine in [address] [phone] Sara Jacobs MPAS, P.A.-C. Med Refill from [...] disease Mother Zahra rose mary Diabetes Mother [place] rose mary Diabetic retinopathy Mother [place] rose mary Eczema Mother Zahra rose mary Glaucoma Mother Zahra rose mary Hearing loss Mother [place] rose mary Heart attack Mother [place] rose mary Hypertension Mother [place] rose mary Ovarian cancer Mother Zahra rose [...] alejo Alive Daughter Sumanth Alive Father Juan romano (Age 71) Half-Sister Kasandra Jacobsen Alive Mother [place] rose mary (Age 84) Sister 1 kathi [...] pur e alcohol) Maybe 1 a month [facility] Utilities Answer Date Recorded In the past [...] often do you attend chur ch or congregational services? More than 4 times per year 05/19/2022 Do you belong to any clubs o r organizations such as denominational groups, unions, fraternal or athletic groups, or [...] Answer Date Recorded PHQ-2 Score 0 04/04/2024 [facility]at ional [facility] - Occupational Stress [...] your living situation today? I have a [facility] place to live 04/04/2024 Education Answer Date Recorded What is the highest level of school you have completed or the highest degree you have received? 12th grade 12/20/2018 Comments No Sex and Gender Information Value Date Recorded Sex Assigned at Female 04/24/2018 2:32 PM CDT Legal Sex Female 2:08 AM THERMOMETER MAKER Gender Identity Female 04/24/2018 2:32 PM CDT [...] PM CDT Clinical Communication Virtual Review in [place], [place] [address] [place] [phone] 10/27/2024 10:00 AM CDT Office Visit Division of Pain Medicine in [place], [place] [address] [place] [phone] Jane Tom P.A.-C., M.S. [address] [place] [phone] Health Maintenance Due Date Last Done Comments [...] this topic Medical Devices Implanted Type Area Almond Sorter Device Identifier Shelf Expiration Date Model / [...] C.N.P. LAB BLOOD ADD-ON Fi nal Result [facility] [address] [place] [address], [place] OWAT [facility] in [place] [address] [place] [address] from Last 3 Months or Most Recently Relevant to Health Maintenance Insurance MEDICARE BLUE [employer] BLUE [employer]IELD Advance Directives For more information, please contact: [phone] Documents on File Type Date Recorded Patient Head Of Human Resources Expl anation Advance Directives 03/11/2012 12:00 AM [place] document. See document viewer. Advance Directives 01/22/2012 12:00 AM Leg acy document. See document viewer. Care Teams Meters Superintendent Relationship Specialty Start Date End Date Naga Cole M.B.B.SBrittney, MAntonia. [address] [place] [phone] PCP - General 09/04/24 [facility] [place], [place] Dentistry 04/04/24 [facility] [place], [place] Ophthalmology 04/04/24 [facility] [place], [place] Chiropractic Medicine 04/04/24 [facility] Durable Medical Equipment 04/04/24
== END 2024-10-18 13:14 | disposition home or self-care (01) ==
PROVIDERS: Emergency Provider Family Medicine; PCP Internal Medicine
DX: M54.16 Radiculopathy, lumbar region (principal)
CPT/HCPCS: 72100; 73502; 93971; 99284